=== PATIENT | male | born 1980 | race Caucasian/White ===

== ENCOUNTER 2022-01-14 09:31 | Emergency (ER) | payer MEDICAID ==
[~2022-01-14] VITALS: Ht 172.7 cm; Wt 85.3 kg
[2022-01-14 09:48] VITALS: BP 116/54
--- NOTE | 2022-01-14 10:50 | NUR ---
AMBULATED TO BED 6
[2022-01-14] MEDS ORDERED: TETRACAINE HCL/PF 0.5% OPTH 4 ML BTL OP ONE (11:10)
[2022-01-14] MEDS ORDERED: FLUORESCEIN OPTH STRIP 1 MG OP ONE (11:10)
--- NOTE | 2022-01-14 11:20 | NUR ---
41YO MALE PT C/O L EYE PAIN XYESTERDAY. PT STATES HE HAD ROCK FALL INTO EYE WHILE AT WORK , DENIES WEARING EYE PROTECTIVE WEAR . L EYE PRESENTS REDDENED , NO VISIBLE OBJECT NOTED. STATES PAIN AT MOST ON MOVEMENT . DNIES TAKING MEDICATION FOR PAIN , CHANGE IN VISION, N/V/D, FEVER OR CHILLS. PT AAOX4, RESPIRATIONS EVEN AND UNLABORED. HX:DENIES NKA
[2022-01-14] MEDS ORDERED: OFLOS LEFT EYE (12:19)
[2022-01-14] MEDS ORDERED: KETO5SOL OP (12:19)
[2022-01-14 12:45] VITALS: BP 124/77
--- NOTE | 2022-01-14 12:45 | NUR ---
Patient discharged with v/s stable. Written and verbal after care instructions FOR [facility] given and explained. Patient alert, oriented and verbalized understanding of instructions. Ambulatory with steady gait. All questions addressed prior to discharge. ID band removed. Patient advised to follow up with PMD. Rx of KETOROLAC TROMETHAMINE AND OLFAXCIN given. Opportunity to ask questions provided and answered.
--- NOTE | 2022-01-14 13:20 | NUR ---
The patient's care was reviewed and supervised by Graham Teague RN.
== END 2022-01-14 12:45 | disposition home or self-care (01) ==
LOC: MED 09:31
DX: S05.02XA Injury of conjunctiva and corneal abrasion without foreign body, left eye, initial encounter (principal); Z79.899 Other long term (current) drug therapy; X58.XXXA Exposure to other specified factors, initial encounter; Y93.89 Activity, other specified; Y92.89 Other specified places as the place of occurrence of the external cause; Y99.8 Other external cause status
CPT/HCPCS: 99283

== ENCOUNTER 2023-04-06 12:12 | Emergency (ER) | payer MEDICAID ==
[~2023-04-06] VITALS: Ht 177.8 cm; Wt 85.7 kg
[~2023-04-06 12:12] MED LIST: KETO5SOL OP; OFLOS LEFT EYE
[2023-04-06 12:30] VITALS: BP 145/82; PULSE 72; RESP 16; TEMP 97.7; O2SAT 97
[2023-04-06] MEDS ORDERED: NACL 0.9% 1,000 ML IV ONE (12:55)
[2023-04-06] MEDS ORDERED: KETOROLAC 30 MG/ML VIAL IVP ONE (12:55)
[2023-04-06 13:09] LABS: BASOPHILS # (AUTO) 0.1 K/uL (0.00-0.22); BASOPHILS % (AUTO) 0.5 % (0.0-2.0); HEMATOCRIT 45.4 % (36-52); HEMOGLOBIN 15.8 g/dL (12.0-18.0); LYMPHOCYTES # (AUTO) 1.5 K/uL (2.0-11.5); LYMPHOCYTES % (AUTO) 8.6 % (20.5-51.1); MEAN CORPUSCULAR HEMOGLOBIN 32 pg (27-31); MEAN CORPUSCULAR HGB CONC 35 g/dL (33-37); MEAN CORPUSCULAR VOLUME 91.4 fL (80-94); MONOCYTES # (AUTO) 0.9 K/uL (0.8-1.0); MONOCYTES % (AUTO) 5.5 % (1.7-9.3); NEUTROPHILS # (AUTO) 14.5 K/uL (1.8-7.7); NEUTROPHILS % (AUTO) 85.4 % (42.2-75.2); PLATELET COUNT (AUTO) 323 K/uL (140-450); RED BLOOD CELL COUNT(AUTO) 4.97 MIL/uL (4.20-6.10)
[2023-04-06 13:17] LABS: APPEARANCE,URINE CLEAR (CLEAR); BILIRUBIN,URINE NEGATIVE (NEGATIVE); BLOOD, URINE 3+ (NEGATIVE); COLOR,URINE YELLOW (YELLOW); LEUKOCYTE ESTERASE ,URINE TRACE (NEGATIVE); NITRITE, URINE POSITIVE (NEGATIVE); PH,URINE 6.5 (5.0-9.0); PROTEIN,URINE 3+ (NEGATIVE); UGLUCOSE 1+ (NEGATIVE); UROBILINOGEN,URINE >=8.0 EU/dL (0.2 - 1)
[2023-04-06 13:21] LABS: CALCIUM 8.9 mg/dL (8.5-10.1); CARBON DIOXIDE 28.2 mmol/L (21-32); CREATININE 1.4 mg/dL (0.6-1.3); POTASSIUM 4.2 mmol/L (3.5-5.1)
[2023-04-06 13:45] LABS: BACTERIA,URINE FEW /HPF (None Seen); RBC,URINE 11-20 (MOD) /HPF (0-5); WBC,URINE 0-5 /HPF (0-5)
[2023-04-06 13:46] LABS: MUCUS,URINE None Seen /LPF (None Seen); SQUAMOUS EPITHELIAL CELL,UR 0-3 (FEW) /LPF (0-3 (FEW)); TRICHOMONAS,URINE None Seen /HPF (None Seen); WHITE BLOOD CELL CASTS,URINE None Seen /LPF (None Seen); YEAST,URINE None Seen /HPF (None Seen)
[2023-04-06] MEDS ORDERED: TAMS0.4C96 PO (14:06)
[2023-04-06] MEDS ORDERED: IBUP-1842 PO (14:07)
[2023-04-06 14:27] VITALS: BP 116/74; PULSE 78; RESP 16; TEMP 98; O2SAT 99
== END 2023-04-06 14:30 | disposition home or self-care (01) ==
LOC: MED 12:12
DX: R10.9 Unspecified abdominal pain (principal); Z79.899 Other long term (current) drug therapy
CPT/HCPCS: 36415; 74176; 80048; 81001; 85025; 96361; 96374; 99285; J1885; J7030

== ENCOUNTER 2023-08-28 19:22 | Emergency (ER) | payer MEDICAID, OTHER ==
[~2023-08-28] VITALS: Ht 172.7 cm; Wt 90.5 kg
[~2023-08-28 19:22] MED LIST changes: +IBUP-1842 PO; +TAMS0.4C96 PO
[2023-08-28 19:40] VITALS: BP 128/80; PULSE 62; RESP 16; TEMP 97.6; O2SAT 99
[2023-08-28 20:19] VITALS: O2SAT 98
[2023-08-28] MEDS: FLUORESCEIN OPTH STRIP 1 MG OP ONE (20:54)
[2023-08-28] MEDS: TETRACAINE HCL/PF 0.5% OPTH 4 ML BTL OP ONE (20:54)
[2023-08-28] MEDS ORDERED: ERYT5OIN51 OP (21:06)
== END 2023-08-28 21:26 | disposition home or self-care (01) ==
LOC: MED 19:22
DX: T15.12XA Foreign body in conjunctival sac, left eye, initial encounter (principal); Z79.899 Other long term (current) drug therapy
CPT/HCPCS: 10120; 65220; 99284; 99285

== ENCOUNTER 2023-10-19 17:25 | Emergency (ER) | payer OTHER ==
[~2023-10-19] VITALS: Ht 172.7 cm; Wt 81.6 kg
[~2023-10-19 17:25] MED LIST changes: +ERYT5OIN51 OP
[2023-10-19 17:28] VITALS: BP 155/88; PULSE 60; RESP 22; TEMP 98.4; O2SAT 98
[2023-10-19 18:04] LABS: BASOPHILS # (AUTO) 0.1 K/uL (0.00-0.22); BASOPHILS % (AUTO) 0.5 % (0.0-2.0); EOSINOPHILS % (AUTO) 0.1 % (0.0-4.0); HEMATOCRIT 47.3 % (36-52); LYMPHOCYTES # (AUTO) 2.7 K/uL (2.0-11.5); LYMPHOCYTES % (AUTO) 22.7 % (20.5-51.1); MEAN CORPUSCULAR HEMOGLOBIN 31 pg (27-31); MEAN CORPUSCULAR HGB CONC 34 g/dL (33-37); MEAN CORPUSCULAR VOLUME 92.5 fL (80-94); MONOCYTES # (AUTO) 0.8 K/uL (0.8-1.0); MONOCYTES % (AUTO) 6.8 % (1.7-9.3); NEUTROPHILS # (AUTO) 8.4 K/uL (1.8-7.7); NEUTROPHILS % (AUTO) 69.9 % (42.2-75.2); PLATELET COUNT (AUTO) 305 K/uL (140-450); RED BLOOD CELL COUNT(AUTO) 5.12 MIL/uL (4.20-6.10); RED CELL DISTRIBUTION WIDTH 13.8 % (11.6-13.7)
[2023-10-19] MEDS: ONDANSETRON 4 MG/2 ML VIAL IVP ONE (18:19)
[2023-10-19] MEDS: NACL 0.9% 1,000 ML IV SCH (18:19)
[2023-10-19] MEDS: KETOROLAC 30 MG/ML VIAL IVP ONE (18:19)
[2023-10-19 18:23] LABS: CALCIUM 9.4 mg/dL (8.5-10.1); CARBON DIOXIDE 27.5 mmol/L (21-32); CREATININE 1.3 mg/dL (0.6-1.3); POTASSIUM 3.5 mmol/L (3.5-5.1)
[2023-10-19 18:28] LABS: ALBUMIN 4.2 g/dL (3.4-5.0); BILIRUBIN,DIRECT 0.2 mg/dL (0.0-0.3); TOTAL PROTEIN, SERUM 8.1 g/dL (6.4-8.2)
[2023-10-19 18:32] VITALS: TEMP 98.4
[2023-10-19 18:40] LABS: APPEARANCE,URINE CLOUDY (CLEAR); BILIRUBIN,URINE 1+ (NEGATIVE); BLOOD, URINE 3+ (NEGATIVE); COLOR,URINE YELLOW (YELLOW); LEUKOCYTE ESTERASE ,URINE NEGATIVE (NEGATIVE); NITRITE, URINE POSITIVE (NEGATIVE); PH,URINE 5.5 (5.0-9.0); PROTEIN,URINE 2+ (NEGATIVE); UGLUCOSE NEGATIVE (NEGATIVE)
[2023-10-19 18:44] LABS: BACTERIA,URINE 2+ /HPF (None Seen); ICTOTEST NEGATIVE (NEGATIVE); SQUAMOUS EPITHELIAL CELL,UR 0-3 (FEW) /LPF (0-3 (FEW)); WBC,URINE 0-5 /HPF (0-5)
[2023-10-19 19:25] VITALS: O2SAT 98
[2023-10-19] MEDS ORDERED: TAMS0.4C96 PO (20:29)
[2023-10-19] MEDS ORDERED: ONDA-188 PO (20:29)
[2023-10-19] MEDS ORDERED: IBUP-2213 PO (20:29)
[2023-10-19] MEDS ORDERED: CIPR500T4 PO (20:32)
[2023-10-19] MEDS ORDERED: cefTRIAXone 1,000 MG VIAL ONE (20:35)
[2023-10-19 21:10] VITALS: BP 110/58; PULSE 87; RESP 14; O2SAT 98
== END 2023-10-19 21:10 | disposition home or self-care (01) ==
LOC: MED 17:25
DX: N39.0 Urinary tract infection, site not specified (principal); N13.2 Hydronephrosis with renal and ureteral calculous obstruction; Z79.899 Other long term (current) drug therapy
CPT/HCPCS: 36415; 74176; 80048; 80076; 81001; 83690; 85025; 87086; 96361; 96365; 96375; 99285; J0696; J1885; J2405; J7030